=== PATIENT | female | born 1975 | race Caucasian/White ===

== ENCOUNTER 2017-09-26 21:04 | Inpatient (IN) ==
[2017-09-26] MEDS ORDERED: *HR* HYDROcodone/Acet 5/325 mg TABLET PO ONE (21:48)
[2017-09-26 22:27] LABS: Bilirubin,Urine Small (Negative); Blood,Urine Large (Negative); Clarity,Urine Cloudy (Clear); Color,Urine Yellow (Yellow); Glucose,Urine (UA) 500 mg/dL (Normal); Ketones,Urine Trace mg/dL (Negative); Leukocyte Esterase,Urine Trace (Negative); Nitrite,Urine Negative (Negative); PH,Urine 5.5 pH Units (5.0-8.0); Protein,Urine 30 mg/dL (Neg-Trace); Specific Gravity,Urine 1.027 (1.010-1.025); Urobilinogen,Urine Normal (Normal)
[2017-09-26 22:28] LABS: Basophils % 0.1 %; Eosinophils % 0.2 %; Hematocrit 35.8 % (35.3-44.9); Hemoglobin 11.8 g/dL (11.5-15.4); Immature Granulocytes % 1.6 % (0-4); Lymphocytes # 0.1 K/mcL (0.6-4.6); Lymphocytes % 0.6 %; Mean Corpuscular Hemoglobin 28.6 pg (28.0-33.3); Mean Corpuscular Volume 86.7 fL (83.0-100.0); Mean Platelet Volume 11.1 fL (9.4-12.4); Monocytes # 0.6 K/mcL (0.0-1.3); Monocytes % 2.4 %; Neutrophils # 22.3 K/mcL (1.6-8.9); Platelet Count 275 K/mcL (140-400); Red Blood Count 4.13 M/mcL (3.82-4.97); Red Cell Distribution Width 14.5 % (11.5-14.5); Segmented Neutrophils % 95.1 %
[2017-09-26 22:30] LABS: Eosinophils # 0.1 K/mcL (0.0-0.6)
[2017-09-26 22:30] LABS: Bacteria,Urine None Seen per hpf (None-Few); Hyaline Casts,Urine None Seen per lpf (None-Few); Squamous Epithelial Cell,Urine Many per lpf (None-Few)
[2017-09-26 22:38] LABS: BUN/Creatinine Ratio 10 (6-26); Blood Urea Nitrogen 8 mg/dL (6-20); Calcium 9.3 mg/dL (8.6-10.3); Carbon Dioxide 21 mEq/L (23-29); Chloride 102 mEq/L (98-107); Glucose 130 mg/dL (70-105); Magnesium 1.5 mg/dL (1.6-2.6); Osmolality,Calculated 272 (280-300); Phosphorous 1.2 mg/dL (2.7-4.5); Potassium 3.7 mEq/L (3.5-5.1); Sodium 131 mEq/L (136-145); eGFR For African Americans > 60 (> 60); eGFR For Non-African Americans > 60 (> 60)
[2017-09-26 22:47] LABS: INR 1.4; Prothrombin Time 15.5 Seconds (9.4-12.1)
[2017-09-26] MEDS: 0.9 % Sodium Chloride 1,000 ML IVC SCH (22:49)
[2017-09-26 22:50] LABS: Activated Partial Thrombo Time 31.5 Seconds (26.0-36.0)
[2017-09-26 22:50] LABS: RBC,Urine 0-3 per hpf (0-3)
--- NOTE | 2017-09-26 22:53 | Emergency Department Note ---
Disposition Clinical Impression: Dehydration, Tachycardia Cellulitis Qualifiers: Site of cellulitis: extremity Site of cellulitis of extremity: lower extremity Laterality: right Qualified Code(s): L03.115 - Cellulitis of right lower limb Fever Qualifiers: Fever type: unspecified Qualified Code(s): R50.9 - Fever, unspecified Disposition: Still a Patient Condition: Fair Referrals: NONE,PCP [Primary Care Provider] - Jay Mas, [employer] MANAGER [Family Provider] - Forms: ED Satisfaction Letter Time of Disposition: 23:16 General Adult HPI - General Chief complaint: ED Nausea/Vomiting/Diarrhea Stated complaint: NV due to antibiotics given to her at [place] [place] [facility] 09/25 Time Seen by Provider: 09/26/17 21:31 Source: patient, family Mode of arrival: wheelchair Limitations: no limitations Nursing Notes Reviewed: Yes Vital Signs Reviewed: Yes - History of Present Illness HPI Narrative: Patient presents emergency room with complaint of fever or chills generalized malaise and pain in her right leg. She was seen and evaluated off outside facility and given a tetanus shot and oral antibiotics at home. she cut the inside of her foot on the metal. Patient denies any other trauma or injury. Since then she has been feeling much worse. Denies any chest pain shortness of breath headaches vision changes nausea vomiting or diarrhea. She has had fevers and chills with the potential source being her foot. Onset (ago): day(s) Location: right, lower extremity Radiation: non-radiation Pain Scale: 5 Consistency: constant Improves with: nothing Worsens with: movement Associated symptoms: Reports: fever/chills, loss of appetite, malaise Treatments Prior to Arrival: none - Related Data Previous Rx's Medication Instructions Recorded Sulfamethoxazole/Trimeth DS 1 each PO BID #10 tablet 09/25/17 [Bactrim DS] cephALEXin [Keflex] 500 mg PO QID #20 capsule 09/25/17 Allergies Allergy/AdvReac Type Severity Reaction Status Date / Time No Known Allergies Allergy Verified 09/25/17 17:17 All systems ED: reviewed and negative except as stated. Review of Systems: As Per HPI Constitutional: Reports: fever, chills, weakness Eyes: Denies: eye pain ENT ED: Denies: throat pain Cardiovascular: Denies: chest pain, palpitations, dyspnea on exertion, orthopnea Respiratory: Denies: cough, dyspnea, wheezes Gastrointestinal: Denies: abdominal pain, nausea, vomiting, diarrhea Genitourinary: Denies: dysuria, frequency Musculoskeletal: Denies: back pain, neck pain Integumentary: Reports: lesions. Denies: rash, abrasion Psychiatric: Denies: anxiety, depression Past Medical History - Past Medical History Attestation: Yes The following information was validated with the patient. Source: patient Medical history: Reports: no medical history Psychiatric history: Reports: no psych history - Social History Smoking Status: Current every day smoker Smokeless Tobacco Status: No Alcohol use: Reports: none Drug use: Reports: none Physical Exam - General Limitations: no limitations General appearance: alert, in no apparent distress - Head Head exam: atraumatic, normocephalic, normal inspection - ENT ENT exam: normal exam, normal oropharynx, mucous membranes moist - Neck Neck exam: Present: normal inspection, full ROM, trachea midline - Chest Chest inspection: Present: normal inspection, symmetric chest wall rise - Respiratory Respiratory exam: Present: normal lung sounds bilaterally. Absent: respiratory distress, wheezes, accessory muscle use - Cardiovascular Cardiovascular exam: Present: normal rhythm, tachycardia, normal heart sounds - Abdominal Exam Abdominal exam: Present: soft, Non-Tender, normal bowel sounds. Absent: tenderness, distention, guarding, rebound, rigidity, Billings's sign, Rovsing's sign, tenderness at McBurney's Point - Extremities Exam Extremities exam: Present: full ROM, tenderness, normal capillary refill, joint swelling - Back Exam Back exam: Present: normal inspection, full ROM. Absent: tenderness - Neurological Exam Neurological exam: Present: alert, oriented X3, CN II-XII intact - Skin Skin exam: Present: warm, dry, intact, normal color Course Course Narrative: patient seen and examined at the time of arrival. See history of present illness. Patient was recently seen and evaluated for right lower extremity injury and pain. She had lab workup completed for potential infection to her right leg. She was seen at outside facility and had this treatment course completed. The inciting incident was approximately 3 or 4 days ago when she injured her foot all working at home. She is covered by a piece of metal. She was given a tetanus shot and antibiotics for home at that time. Over the last 24 hours she said progression of the swelling irritation redness and warmth to the right lower extremity. She has had generalized malaise fevers and chills. Patient denies chest pain shortness of breath headaches vision changes nausea vomiting or diarrhea. She has had generalized malaise and chills. Patient had a temperature of 103) the emergency room as well as tachycardia to 140. She also was hypotensive. On physical exam the patient is resting in the bed but she does appear to be in mild distress. Her mucous membranes are dry oropharynx is patent. Trachea is midline. Lungs are clear to auscultation bilaterally. Heart is regular but tachycardic. Abdomen is soft nontender nondistended. Lower extremities was evaluated and shows a lesion on the medial aspect of the right foot just below the medial malleolus. There is redness warmth and irritation extending up into the calf. She has no pain with palpation of the calf. Pulses of the DP and PT distributions are intact. She has normal sensation bilaterally and both are symmetrical. Patient is concerning for sepsis based on the abnormal labs and potential infection in the right lower extremity. CBC chemistry lactic acid troponin all within urinalysis chest x-ray and EKG will be collected to rule out any other potential infectious etiology. ESR and CRP will also be collected along with influenza swab. CT imaging of the lower extremity will be completed with IV contrast. Patient will be provided first dose of IV vancomycin as well as fluids 2 L here in the emergency room. Patient will most likely need admission for definitive management. Detailed review of presentation symptoms medical intervention was discussed with the overnight physician Dr. Lucina Gavin. She will complete the course of care and treatment evaluation. A lengthy discussion was had with the family with my recommendations for possible admission once the workup is completed. They agree with this and are comfortable with the plan. Patient is otherwise clinically stable and no acute distress because of concern for infectious etiology require further medical intervention management. Patient understands this is comfortable with the plan. Vital Signs Temperature 103.0 F H 09/26/17 21:22 Pulse Rate 146 09/26/17 21:22 Respiratory Rate 16 09/26/17 21:22 Blood Pressure 96/67 09/26/17 21:22 O2 Sat by Pulse Oximetry 98 09/26/17 21:22 Temperature 103.0 F H 09/26/17 21:22 Pulse Rate 146 09/26/17 21:22 Respiratory Rate 16 09/26/17 21:22 Blood Pressure 96/67 09/26/17 21:22 O2 Sat by Pulse Oximetry 98 09/26/17 21:22 Oxygen Delivery Oxygen Delivery Room Air Medical Decision Making - MDM Narrative Medical decision making narrative: Cellulitis, fever, tachycardia, - Medical Records Medical records reviewed: Yes I reviewed the patient's medical records. - Lab Data Lab results reviewed: Yes I reviewed the patient's lab results. Result diagrams: 09/26/17 22:08 09/26/17 22:08 Lab Results 09/26/17 09/26/17 09/26/17 Range/Units 22:03 22:08 22:08 WBC 23.4 H (4.3-11.1) K/mcL RBC 4.13 (3.82-4.97) M/mcL Hgb 11.8 (11.5-15.4) g/dL Hct 35.8 (35.3-44.9) % MCV 86.7 (83.0-100.0) fL MCH 28.6 (28.0-33.3) pg MCHC 33.0 (31.6-35.5) g/dL RDW 14.5 (11.5-14.5) % Plt Count 275 (140-400) K/mcL MPV 11.1 (9.4-12.4) fL Immature Gran % 1.6 (0-4) % Seg Neutrophils % 95.1 % Lymphocytes % 0.6 % Monocytes % 2.4 % Eosinophils % 0.2 % Basophils % 0.1 % Neutrophils # 22.3 H (1.6-8.9) K/mcL Lymphocytes # 0.1 L (0.6-4.6) K/mcL Monocytes # 0.6 (0.0-1.3) K/mcL Eosinophils # 0.1 (0.0-0.6) K/mcL Basophils # 0.0 (0.0-0.2) K/mcL Platelet Estimate Normal (Normal) PT 15.5 H (9.4-12.1) Seconds INR 1.4 APTT 31.5 (26.0-36.0) Seconds Sodium (136-145) mEq/L Potassium (3.5-5.1) mEq/L Chloride (98-107) mEq/L Carbon Dioxide (23-29) mEq/L BUN (6-20) mg/dL Creatinine (0.60-1.20) mg/dL Est GFR ( Amer) (> 60) Est GFR (Non-Af Amer) (> 60) BUN/Creatinine Ratio (6-26) Glucose (70-105) mg/dL Calculated Osmolality (280-300) Lactic Acid (0.5-2.2) mmol/L Calcium (8.6-10.3) mg/dL Phosphorus (2.7-4.5) mg/dL Magnesium (1.6-2.6) mg/dL Urine Color Yellow (Yellow) Urine Clarity Cloudy A (Clear) Urine pH 5.5 (5.0-8.0) pH Units Ur Specific [place] 1.027 H (1.010-1.025) Urine Protein 30 H (Neg-Trace) mg/dL Urine Glucose (UA) 500 H (Normal) mg/dL Urine Ketones Trace H (Negative) mg/dL Urine Blood Large H (Negative) Urine Nitrite Negative (Negative) Urine Bilirubin Small H (Negative) Urine Urobilinogen Normal (Normal) mg/dL Ur Leukocyte Esterase Trace H (Negative) Urine Microscopic RBC 0-3 (0-3) per hpf Urine Microscopic WBC 5-15 H (0-3) per hpf Ur Squamous Epith Cells Many H (None-Few) per lpf Urine Bacteria None Seen (None-Few) per hpf Hyaline Casts None Seen (None-Few) per lpf Ur Culture Indicated? NO. (NO) 09/26/17 09/26/17 Range/Units 22:08 22:08 WBC (4.3-11.1) K/mcL RBC (3.82-4.97) M/mcL Hgb (11.5-15.4) g/dL Hct (35.3-44.9) % MCV (83.0-100.0) fL MCH (28.0-33.3) pg MCHC (31.6-35.5) g/dL RDW (11.5-14.5) % Plt Count (140-400) K/mcL MPV (9.4-12.4) fL Immature Gran % (0-4) % Seg Neutrophils % % Lymphocytes % % Monocytes % % Eosinophils % % Basophils % % Neutrophils # (1.6-8.9) K/mcL Lymphocytes # (0.6-4.6) K/mcL Monocytes # (0.0-1.3) K/mcL Eosinophils # (0.0-0.6) K/mcL Basophils # (0.0-0.2) K/mcL Platelet Estimate (Normal) PT (9.4-12.1) Seconds INR APTT (26.0-36.0) Seconds Sodium 131 L (136-145) mEq/L Potassium 3.7 (3.5-5.1) mEq/L Chloride 102 (98-107) mEq/L Carbon Dioxide 21 L (23-29) mEq/L BUN 8 (6-20) mg/dL Creatinine 0.82 (0.60-1.20) mg/dL Est GFR ( Amer) > 60 (> 60) Est GFR (Non-Af Amer) > 60 (> 60) BUN/Creatinine Ratio 10 (6-26) Glucose 130 H (70-105) mg/dL Calculated Osmolality 272 L (280-300) Lactic Acid 1.5 (0.5-2.2) mmol/L Calcium 9.3 (8.6-10.3) mg/dL Phosphorus 1.2 L (2.7-4.5) mg/dL Magnesium 1.5 L (1.6-2.6) mg/dL Urine Color (Yellow) Urine Clarity (Clear) Urine pH (5.0-8.0) pH Units Ur Specific [place] (1.010-1.025) Urine Protein (Neg-Trace) mg/dL Urine Glucose (UA) (Normal) mg/dL Urine Ketones (Negative) mg/dL Urine Blood (Negative) Urine Nitrite (Negative) Urine Bilirubin (Negative) Urine Urobilinogen (Normal) mg/dL Ur Leukocyte Esterase (Negative) Urine Microscopic RBC (0-3) per hpf Urine Microscopic WBC (0-3) per hpf Ur Squamous Epith Cells (None-Few) per lpf Urine Bacteria (None-Few) per hpf Hyaline Casts (None-Few) per lpf Ur Culture Indicated? (NO) - Radiology Data Radiology results reviewed: Yes I reviewed the patient's radiology results. Chest x-ray stable for acute etiology. - EKG Data EKG #1 EKG attestation: Yes I reviewed and interpreted this EKG. EKG results narrative: EKG shows sinus rhythm. Ventricular rate of 137. OH interval of 138. QRS duration of 73. QTC of 410. [place] is normal. No acute signs of ST segment elevation or abnormality. No acute signs of WPW or Brugada syndrome. No previous EKG for evaluation. EKG shows normal: sinus rhythm
[2017-09-26 23:00] LABS: Platelet Estimate Normal (Normal)
[2017-09-26] MEDS ORDERED: 0.9 % Sodium Chloride 1,000 ML IVC ONE (23:10)
[2017-09-26] MEDS ORDERED: Piperacillin/Tazobactam 3.375 GM in 0.9 % Sodium Chloride Mini Bag 100 ML IVPB ONE (23:27)
--- NOTE | 2017-09-26 23:28 | Emergency Department Note ---
START Narrative - START START: accepted sign out from Dr. Castillo. Plan is to followup on the CT of her right leg for cellulitis. Emmanuel is likely to be admitted to medicine for cellutiis and sepsis. Continued IVF and will add zosyn to her therapy. 0059: WE will admit ot [facility]. CT result shows cellulitis. We will I/D at bedside. 11 blade with about 2cc of cloudly fluid discharge with immeadaite relief, no bleeding, irrigated extensively. accepted by Dr. Eubanks
[2017-09-26 23:43] LABS: C-Reactive Protein 158 mg/L (Less than 10)
[2017-09-27] MEDS: 0.9 % Sodium Chloride 1,000 ML IVC SCH (00:22)
[2017-09-27] MEDS ORDERED: 0.9 % Sodium Chloride 1,000 ML IVC ONE (01:17)
--- NOTE | 2017-09-27 01:17 | Emergency Department Note ---
Disposition Clinical Impression: Dehydration, Tachycardia Cellulitis Qualifiers: Site of cellulitis: extremity Site of cellulitis of extremity: lower extremity Laterality: right Qualified Code(s): L03.115 - Cellulitis of right lower limb Fever Qualifiers: Fever type: unspecified Qualified Code(s): R50.9 - Fever, unspecified Disposition: Admitted As Inpatient Condition: Fair Referrals: NONE,PCP [Primary Care Provider] - Jay Mas, FINANCE INSURANCE MANAGER [Family Provider] - Forms: ED Satisfaction Letter Time of Disposition: 01:17 General Adult HPI - General Chief complaint: ED Nausea/Vomiting/Diarrhea Stated complaint: NV due to antibiotics given to her at [facility] 09/25 Time Seen by Provider: 09/26/17 21:31 Source: patient, family Mode of arrival: wheelchair Limitations: no limitations - History of Present Illness Location: right, lower extremity Pain Scale: 1 Improves with: nothing Worsens with: movement Associated symptoms: Reports: fever/chills, loss of appetite, malaise Treatments Prior to Arrival: none - Related Data Previous Rx's Medication Instructions Recorded Sulfamethoxazole/Trimeth DS 1 each PO BID #10 tablet 09/25/17 [Bactrim DS] cephALEXin [Keflex] 500 mg PO QID #20 capsule 09/25/17 Allergies Allergy/AdvReac Type Severity Reaction Status Date / Time No Known Allergies Allergy Verified 09/25/17 17:17 Constitutional: Reports: fever, chills, weakness Eyes: Denies: eye pain ENT ED: Denies: throat pain Cardiovascular: Denies: chest pain, palpitations, dyspnea on exertion, orthopnea Respiratory: Denies: cough, dyspnea, wheezes Gastrointestinal: Denies: abdominal pain, nausea, vomiting, diarrhea Genitourinary: Denies: dysuria, frequency Musculoskeletal: Denies: back pain, neck pain Integumentary: Reports: lesions. Denies: rash, abrasion Psychiatric: Denies: anxiety, depression Past Medical History - Past Medical History Medical history: Reports: no medical history Psychiatric history: Reports: no psych history - Social History Smoking Status: Current every day smoker Smokeless Tobacco Status: No Alcohol use: Reports: none Drug use: Reports: none Physical Exam - General Limitations: no limitations General appearance: alert, in no apparent distress Course Vital Signs Temperature 103.0 F H 09/26/17 21:22 Pulse Rate 146 09/26/17 21:22 Respiratory Rate 16 09/26/17 21:22 Blood Pressure 96/67 09/26/17 21:22 O2 Sat by Pulse Oximetry 98 09/26/17 21:22 Temperature 103.0 F H 09/26/17 21:22 Pulse Rate 112 09/27/17 00:24 Respiratory Rate 22 09/27/17 00:24 Blood Pressure 96/52 09/27/17 00:24 O2 Sat by Pulse Oximetry 95 09/27/17 00:24 Oxygen Delivery Oxygen Delivery Room Air Medical Decision Making - Lab Data Result diagrams: 09/26/17 22:08 09/26/17 22:08 Lab Results 09/26/17 09/26/17 09/26/17 Range/Units 22:01 22:03 22:03 WBC (4.3-11.1) K/mcL RBC (3.82-4.97) M/mcL Hgb (11.5-15.4) g/dL Hct (35.3-44.9) % MCV (83.0-100.0) fL MCH (28.0-33.3) pg MCHC (31.6-35.5) g/dL RDW (11.5-14.5) % Plt Count (140-400) K/mcL MPV (9.4-12.4) fL Immature Gran % (0-4) % Seg Neutrophils % % Lymphocytes % % Monocytes % % Eosinophils % % Basophils % % Neutrophils # (1.6-8.9) K/mcL Lymphocytes # (0.6-4.6) K/mcL Monocytes # (0.0-1.3) K/mcL Eosinophils # (0.0-0.6) K/mcL Basophils # (0.0-0.2) K/mcL Platelet Estimate (Normal) ESR 59 H (0-15) mm/hr PT (9.4-12.1) Seconds INR APTT (26.0-36.0) Seconds Sodium (136-145) mEq/L Potassium (3.5-5.1) mEq/L Chloride (98-107) mEq/L Carbon Dioxide (23-29) mEq/L BUN (6-20) mg/dL Creatinine (0.60-1.20) mg/dL Est GFR ( Amer) (> 60) Est GFR (Non-Af Amer) (> 60) BUN/Creatinine Ratio (6-26) Glucose (70-105) mg/dL Calculated Osmolality (280-300) Lactic Acid (0.5-2.2) mmol/L Calcium (8.6-10.3) mg/dL Phosphorus (2.7-4.5) mg/dL Magnesium (1.6-2.6) mg/dL C-Reactive Protein (Less than 10) mg/L Urine Color Yellow (Yellow) Urine Clarity Cloudy A (Clear) Urine pH 5.5 (5.0-8.0) pH Units Ur Specific [place] 1.027 H (1.010-1.025) Urine Protein 30 H (Neg-Trace) mg/dL Urine Glucose (UA) 500 H (Normal) mg/dL Urine Ketones Trace H (Negative) mg/dL Urine Blood Large H (Negative) Urine Nitrite Negative (Negative) Urine Bilirubin Small H (Negative) Urine Urobilinogen Normal (Normal) mg/dL Ur Leukocyte Esterase Trace H (Negative) Urine Microscopic RBC 0-3 (0-3) per hpf Urine Microscopic WBC 5-15 H (0-3) per hpf Ur Squamous Epith Cells Many H (None-Few) per lpf Urine Bacteria None Seen (None-Few) per hpf Hyaline Casts None Seen (None-Few) per lpf Ur Culture Indicated? NO. (NO) Urine Test Negative (Negative) 09/26/17 09/26/17 09/26/17 Range/Units 22:08 22:08 22:08 WBC 23.4 H (4.3-11.1) K/mcL RBC 4.13 (3.82-4.97) M/mcL Hgb 11.8 (11.5-15.4) g/dL Hct 35.8 (35.3-44.9) % MCV 86.7 (83.0-100.0) fL MCH 28.6 (28.0-33.3) pg MCHC 33.0 (31.6-35.5) g/dL RDW 14.5 (11.5-14.5) % Plt Count 275 (140-400) K/mcL MPV 11.1 (9.4-12.4) fL Immature Gran % 1.6 (0-4) % Seg Neutrophils % 95.1 % Lymphocytes % 0.6 % Monocytes % 2.4 % Eosinophils % 0.2 % Basophils % 0.1 % Neutrophils # 22.3 H (1.6-8.9) K/mcL Lymphocytes # 0.1 L (0.6-4.6) K/mcL Monocytes # 0.6 (0.0-1.3) K/mcL Eosinophils # 0.1 (0.0-0.6) K/mcL Basophils # 0.0 (0.0-0.2) K/mcL Platelet Estimate Normal (Normal) ESR (0-15) mm/hr PT 15.5 H (9.4-12.1) Seconds INR 1.4 APTT 31.5 (26.0-36.0) Seconds Sodium 131 L (136-145) mEq/L Potassium 3.7 (3.5-5.1) mEq/L Chloride 102 (98-107) mEq/L Carbon Dioxide 21 L (23-29) mEq/L BUN 8 (6-20) mg/dL Creatinine 0.82 (0.60-1.20) mg/dL Est GFR ( Amer) > 60 (> 60) Est GFR (Non-Af Amer) > 60 (> 60) BUN/Creatinine Ratio 10 (6-26) Glucose 130 H (70-105) mg/dL Calculated Osmolality 272 L (280-300) Lactic Acid (0.5-2.2) mmol/L Calcium 9.3 (8.6-10.3) mg/dL Phosphorus 1.2 L (2.7-4.5) mg/dL Magnesium 1.5 L (1.6-2.6) mg/dL C-Reactive Protein 158 H (Less than 10) mg/L Urine Color (Yellow) Urine Clarity (Clear) Urine pH (5.0-8.0) pH Units Ur Specific [place] (1.010-1.025) Urine Protein (Neg-Trace) mg/dL Urine Glucose (UA) (Normal) mg/dL Urine Ketones (Negative) mg/dL Urine Blood (Negative) Urine Nitrite (Negative) Urine Bilirubin (Negative) Urine Urobilinogen (Normal) mg/dL Ur Leukocyte Esterase (Negative) Urine Microscopic RBC (0-3) per hpf Urine Microscopic WBC (0-3) per hpf Ur Squamous Epith Cells (None-Few) per lpf Urine Bacteria (None-Few) per hpf Hyaline Casts (None-Few) per lpf Ur Culture Indicated? (NO) Urine Test (Negative) 09/26/17 Range/Units 22:08 WBC (4.3-11.1) K/mcL RBC (3.82-4.97) M/mcL Hgb (11.5-15.4) g/dL Hct (35.3-44.9) % MCV (83.0-100.0) fL MCH (28.0-33.3) pg MCHC (31.6-35.5) g/dL RDW (11.5-14.5) % Plt Count (140-400) K/mcL MPV (9.4-12.4) fL Immature Gran % (0-4) % Seg Neutrophils % % Lymphocytes % % Monocytes % % Eosinophils % % Basophils % % Neutrophils # (1.6-8.9) K/mcL Lymphocytes # (0.6-4.6) K/mcL Monocytes # (0.0-1.3) K/mcL Eosinophils # (0.0-0.6) K/mcL Basophils # (0.0-0.2) K/mcL Platelet Estimate (Normal) ESR (0-15) mm/hr PT (9.4-12.1) Seconds INR APTT (26.0-36.0) Seconds Sodium (136-145) mEq/L Potassium (3.5-5.1) mEq/L Chloride (98-107) mEq/L Carbon Dioxide (23-29) mEq/L BUN (6-20) mg/dL Creatinine (0.60-1.20) mg/dL Est GFR ( Amer) (> 60) Est GFR (Non-Af Amer) (> 60) BUN/Creatinine Ratio (6-26) Glucose (70-105) mg/dL Calculated Osmolality (280-300) Lactic Acid 1.5 (0.5-2.2) mmol/L Calcium (8.6-10.3) mg/dL Phosphorus (2.7-4.5) mg/dL Magnesium (1.6-2.6) mg/dL C-Reactive Protein (Less than 10) mg/L Urine Color (Yellow) Urine Clarity (Clear) Urine pH (5.0-8.0) pH Units Ur Specific [place] (1.010-1.025) Urine Protein (Neg-Trace) mg/dL Urine Glucose (UA) (Normal) mg/dL Urine Ketones (Negative) mg/dL Urine Blood (Negative) Urine Nitrite (Negative) Urine Bilirubin (Negative) Urine Urobilinogen (Normal) mg/dL Ur Leukocyte Esterase (Negative) Urine Microscopic RBC (0-3) per hpf Urine Microscopic WBC (0-3) per hpf Ur Squamous Epith Cells (None-Few) per lpf Urine Bacteria (None-Few) per hpf Hyaline Casts (None-Few) per lpf Ur Culture Indicated? (NO) Urine Test (Negative)
[2017-09-27] MEDS ORDERED: traMADol 50 MG TABLET PO PRN (04:18)
[2017-09-27] MEDS ORDERED: Naloxone 0.4 MG/ML INJ IVP PRN (04:18)
[2017-09-27] MEDS ORDERED: Acetaminophen 325 MG TABLET PO PRN (04:18)
--- NOTE | 2017-09-27 04:39 | Internal Med History&Physical ---
Date of Encounter: 09/27/17 Time of Encounter: 03:50 Assessment and Plan (1) Severe sepsis Current visit: Yes Status: Acute 1. Yarely is finishing her Saline bolus from ER per sepsis protocol. 2. Continue MIV thereafter. 3. Will trend lactate levels. 4. Blood and wound cultures obtained. 5. Will treat with Vancomycin and Cefepime. 6. Source is abscess and cellulitis from right medial ankle. 7. Monitor hemodynamics closely. May need pressors and/or steroids for BP unresponsive to IVF. (2) Abscess of skin or subcutaneous tissue Current visit: No Status: Acute 1. ESR is 59 and not indicative of ostemyelitis. Will trend ESR and CRP. If ESR climbing, I would then recommend MRI of foot/ankle to rule out osteomyelitis. 2. Consult Podiatry for possible need for further I&D/debridement. 3. Contact precautions for possible MRSA. 4. Follow blood and wound cultures from ER. 5. S/P I&D in ER. Qualifiers: Site of cutaneous abscess: extremity Site of cutaneous abscess of extremity : lower extremity Laterality: right Qualified Code(s): L02.415 - Cutaneous abscess of right lower limb (3) DVT prophylaxis Current visit: Yes Status: Acute 1. Heparin SQ. Internal Medicine - H&P: HPI Chief complaint: foot abscess Admitted From: Emergency Dept Plans for Post Hospital Care: Home History of present illness: Ms. Alvarado is a 42 year old female who comes into the ER tonight with complaints of fever, chills, malaise, night sweats, and worsening pain and swelling in her right foot/ankle. She was found to have evidence of an abscess along her right ankle. She also is septic from her infection. She received IV fluid bolus for stabilization and antibiotics were initiated once blood cultures were obtained. She then underwent incision and drainage of her abscess in the ER with significant relief of her pain. I was then contacted by ER to admit patient. I requested the ER send a wound culture as well. Upon my assessment of the patient, she states she feels much better, but she is still tachycardic and borderline hypotensive. Her and 2 sons are present and confirm the above history and that she appears better clinically. She states that roughly 2 weeks ago, she cut her foot on a bed rail at home on her bed and she was getting out of bed to go to the bathroom. It was a small skin break down and scrape that appeared to be clean. Several days later she developed some redness, swelling, warmth, and tenderness. This continued and worsened to the point where she had significant pain and subjective fevers. She went to the ER in [place] and was placed on antibiotics for presumptive MRSA skin infection. Despite taking Bactrim and Keflex, her symptoms worsened to the point she became so weak she could not stand today. She was reluctant to come to the ER here at [place], but her family made her come to the ER. She denies any exposure to any known MRSA contacts. She is not diabetic. She takes no chronic medications and has no chronic illnesses. Past Med Surg Social Fam HX - Past Medical History Attestation: Yes The following information was validated with the patient. Source: patient, obtained from family, other (ER notes) Medical history: no medical history Psychiatric history: no psych history - Past Surgical History Surgical History: other (tubal ligation) - Social History Smoking Status: Current every day smoker Packs per day: 0.5 Smokeless Tobacco Status: No Alcohol use: none Drug use: none Occupational status: employed Current living situation: Home, With Family Activity Level: Independent ambulation, Very active Recent Out of Country Travel Within the Last 8 Weeks: No - Family History Father Living Status: Still Living Hx Family Neuromuscular Disorders: Yes (parkinson) Mother Living Status: Still Living Hx Family Neurologic Disorders: Yes (dementia) Internal Medicine - H&P: Meds Sulfamethoxazole/Trimeth DS [Bactrim DS] 1 each PO BID #10 tablet 09/25/17 [Rx] cephALEXin [Keflex] 500 mg PO QID #20 capsule 09/25/17 [Rx] 3 Allergy/AdvReac Type Severity Reaction Status Date / Time No Known Allergies Allergy Verified 09/25/17 17:17 - Constitutional Constitutional: chills, fever(s), malaise, night sweats, weakness - EENT Eyes: no blurry vision, no change in vision Ears: no ear pain, no tinnitus Nose, mouth and throat: no nasal congestion, no nasal discharge, no sinus pressure, no sore throat - Cardiovascular Cardiovascular ROS IM: lightheadedness, palpitations, no chest pain, no dyspnea , no dyspnea on exertion, no paroxysmal nocturnal dyspnea, no syncope - Respiratory Respiratory: no cough, no dyspnea, no hemoptysis, no chest congestion, no excessive phlegm production, no change in phlegm color - Gastrointestinal Gastrointestinal: no abdominal pain, no diarrhea, no heartburn, no hematemesis, no hematochezia, no nausea, no vomiting - Genitourinary Genitourinary: no dysuria, no flank pain, no hematuria - Musculoskeletal Musculoskeletal ROS IM: arthralgias (right foot/ankle), no back pain - Integumentary Integumentary IM: erythema (right medial ankle area), no rash, no jaundice - Neurological Neurological ROS: no focal weakness, no frequent falls, no headache(s) - Psychiatric Psychiatric: no anxiety, no depression - Endocrine Endocrine IM: no polydipsia, no polyuria - Hematologic/Lymphatic Hematologic/Lymphatic: no easy bruising, no lymphadenopathy - Allergic/Immunologic Allergic/Immunologic: no wheezing, no GI upset with certain foods - Constitutional Vitals: Temp Pulse Resp BP Pulse Ox 97.9 F 106 12 95/59 99 09/27/17 04:12 09/27/17 04:12 09/27/17 04:12 09/27/17 04:12 09/27/17 04:12 General appearance: Present: cooperative, mild distress, A&O X 3, pleasant, answers questions appropriately - Head Head exam: Present: atraumatic, normal inspection - Eye Eye exam: Present: EOMI, normal appearance, PERRL. Absent: scleral icterus Pupils: Present: normal accommodation - ENT ENT exam: Present: mucous membranes dry, normal exam, normal oropharynx - Neck Neck exam general surgery: Present: full ROM, supple. Absent: lymphadenopathy, tenderness, nuchal rigidity, thyromegaly - Respiratory Respiratory exam: Present: CTAB. Absent: chest wall tenderness, rales, respiratory distress, rhonchi, wheezes - Cardiovascular Cardiovascular exam: Present: +S1, +S2, tachycardia. Absent: diastolic murmur, systolic murmur - GI/Abdominal GI/Abdominal exam: Present: normal bowel sounds, soft. Absent: guarding, hepatomegaly, mass, splenomegaly, tenderness - Extremities Exam Extremities exam: Present: full ROM, joint swelling (right annkle with medial abscess and surrounding cellulitis ), normal capillary refill, warm, radial pulses palpable and symmetrical. Absent: calf tenderness, pedal edema - Back Exam Back exam: Absent: CVA tenderness (L), CVA tenderness (R) - Neurological Exam Neurological exam: Present: alert, CN II-XII intact, oriented X3, no focal deficits - Psychiatric Psychiatric exam: Present: normal affect, normal mood - Skin Skin exam: Present: dry, erythema (abscess and cellulitis right medial ankle area s/p I&D), warm. Absent: rash Internal Med - H&P Results - Labs CBC & Chem 7: 09/26/17 22:08 09/26/17 22:08 - EKG Data -: EKG Interpreted by Myself EKG shows normal: sinus rhythm - EKG Data Prior EKG available for review: no EKG comments: 09/27/17 04:44 sinus tachycardia - Diagnostic Studies Chest x-ray Status: image reviewed by me (negative) Other Images Status: image reviewed by me (CT right leg/foot -- abscess noted)
[2017-09-27] MEDS: 0.9 % Sodium Chloride w KCl 20 MEQ/1,000 ML MLS IVC SCH ×2 (04:53→12:04)
[2017-09-27] MEDS ORDERED: Vancomycin (wt based) 1,000 MG VIAL IVPB SCH (05:00)
[2017-09-27] MEDS: *HR* Heparin 5,000 UNIT/ML VIAL SQ SCH ×2 (05:30→17:52)
[2017-09-27] MEDS: Cefepime HCl 2,000 MG in Water for inj. (sterile) 20 ML IVP SCH ×2 (05:47→17:57)
[2017-09-27] MEDS ORDERED: Cefepime HCl 2,000 MG in Water for inj. (sterile) 20 ML IVP SCH (06:00)
--- NOTE | 2017-09-27 07:32 | Electrocardiograph Report ---
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
--- NOTE | 2017-09-27 12:52 | Podiatry Consult Note ---
Date of Encounter: 09/27/17 Time of Encounter: 12:00 Assessment and Plan (1) Abscess of skin or subcutaneous tissue Current visit: No Status: Acute Abscess to medial right ankle s/p bedside I&D Wound appears superficial to inspection- cellulitis has been marked for monitoring and has not extended past marked margins Patient reports pain has decreased since bedside I&D A cotton tipped applicator was used to explore the wound and there were no noted sinus tracts or tunneling- There continues to be mild surrounding edema and erythema consistent with cellulitis. There is no noted fluctuance on palpation, no ascending cellulitis. No odor. Per ct there is no evidence of osteomyelitis however given elevated WBC 23.3, tachycardia, mild hypotension, tmax 103, ESR 59 and CRP 158 at this time we will recommend to the patient a formal surgical I&D and washout of wound with tomorrow. states he will go to bedside this evening to speak with patient about plan and decision Discussed with patient while at bedside Continue current antibiotic coverage, await culture results Due to drainage will order Maxsorb AG to be applied daily with 4x4 and kerlix Chest X-Ray 09/26/17 21:46 IMPRESSION: No acute abnormality. D/ / Klaus Sorensen MD / Klaus Sorensen MD Interpreting Provider: Klaus Sorensen MD Lower Extremity CT 09/26/17 21:47 IMPRESSION: Possible 1.5 cm fluid collection within the superficial subcutaneous tissues medially. Adjacent subcutaneous edema is compatible with cellulitis. No findings to suggest osteomyelitis. If there is persisting clinical concern, MRI is more sensitive. Small amount in the flexor hallucis longus tendon sheath, suggestive of tenosynovitis. D/ / 09/27/2017 07:34:24 Neo Stoddard MD / [email or web address] Interpreting Provider: Neo Stoddard MD Qualifiers: Site of cutaneous abscess: extremity Site of cutaneous abscess of extremity : lower extremity Laterality: right Qualified Code(s): L02.415 - Cutaneous abscess of right lower limb History of Present Illness HPI: Ms. Alvarado is a 42 year old female who presented to [facility] for abscess of the right ankle as well as sepsis. Per patient, she reports she struck on ankle on a bed rail about 1 week ago, states that it was sore but only had a small laceration to the ankle. Patient states that on Tuesday she went to work and when she came home the entire ankle was swollen, hot, warm and painful. States she went to [place] ED and was told to put FUAD on it and warm compression. States she came to the [place] ED yesterday as the wound to her ankle looked worse, she started to have fevers and chills and she did not feel good. Patient reports they cut the wound in the ED and the pain was much better. Patient was admitted and started on vancomycin and cefepime, wound and blood cultures have been obtained. There is a dry dressing to wound at this time. Patient denies any medical or surgical history. Patient states she smokes about 1/2 pack a day. Past Med Surg Social Fam HX - Past Medical History Medical history: no medical history Psychiatric history: no psych history - Past Surgical History Surgical History: other (tubal ligation) - Social History Smoking Status: Current every day smoker Packs per day: 0.5 Smokeless Tobacco Status: No Alcohol use: none Drug use: none - Family History Father Living Status: Still Living Hx Family Neuromuscular Disorders: Yes (parkinson) Mother Living Status: Still Living Hx Family Neurologic Disorders: Yes (dementia) Medications and Allergies No Known Home Drugs 09/27/17 [History] 3 Allergy/AdvReac Type Severity Reaction Status Date / Time No Known Allergies Allergy Verified 09/27/17 09:40 All Systems Reviewed: The remainder of the systems were reviewed and are negative Physical Exam - Constitutional Vitals: Temp Pulse Resp BP Pulse Ox 98.2 F 102 16 105/63 96 09/27/17 12:26 09/27/17 12:26 09/27/17 12:26 09/27/17 12:26 09/27/17 12:26 Exam: Awake, alert and oriented Pulses palpable DP/PT bilaterally Cap refill <3 seconds Sensation intact with light touch to foot Muscle strength 5/5 and equal bilaterally Wound is noted to medial right ankle. There is a 2.3cmx2.3cm area of deviatalized/macerated tissue noted which has been lanced due to abscess Wound is surrounded circumferential by a small ring of induration. There is mild erythema surrounding wound and edema to ankle. There is no ascending cellulitis. Upon exploring wound there is no noted sinus tracts or tunneling. There is a small to moderate amount of expressed clear serous drainage to wound. No odor. No purulent drainage noted at this time. Mild warmth. Slight pain with manipulation of wound. No bone exposure. There is no noted fluctuance to palpation. Results - Labs Result Diagrams: 09/26/17 22:08 09/26/17 22:08 Labs: Abnormal lab results WBC 23.4 K/mcL (4.3-11.1) H 09/26/17 22:08 Neutrophils # 22.3 K/mcL (1.6-8.9) H 09/26/17 22:08 Lymphocytes # 0.1 K/mcL (0.6-4.6) L 09/26/17 22:08 ESR 59 mm/hr (0-15) H 09/26/17 22:01 PT 15.5 Seconds (9.4-12.1) H 09/26/17 22:08 Sodium 131 mEq/L (136-145) L 09/26/17 22:08 Carbon Dioxide 21 mEq/L (23-29) L 09/26/17 22:08 Glucose 130 mg/dL (70-105) H 09/26/17 22:08 Calculated Osmolality 272 (280-300) L 09/26/17 22:08 Phosphorus 1.2 mg/dL (2.7-4.5) L 09/26/17 22:08 Magnesium 1.5 mg/dL (1.6-2.6) L 09/26/17 22:08 C-Reactive Protein 158 mg/L (Less than 10) H 09/26/17 22:08 Urine Clarity Cloudy (Clear) A 09/26/17 22:03 Ur Specific [place] 1.027 (1.010-1.025) H 09/26/17 22:03 Urine Protein 30 mg/dL (Neg-Trace) H 09/26/17 22:03 Urine Glucose (UA) 500 mg/dL (Normal) H 09/26/17 22:03 Urine Ketones Trace mg/dL (Negative) H 09/26/17 22:03 Urine Blood Large (Negative) H 09/26/17 22:03 Urine Bilirubin Small (Negative) H 09/26/17 22:03 Ur Leukocyte Esterase Trace (Negative) H 09/26/17 22:03 Urine Microscopic WBC 5-15 per hpf (0-3) H 09/26/17 22:03 Ur Squamous Epith Cells Many per lpf (None-Few) H 09/26/17 22:03 All other labs normal. Consult Discharge Plan - Plan Referrals: NONE,PCP [Primary Care Provider] - Jay Mas, PRODUCTION QUALITY ANALYST [Family Provider] -
--- NOTE | 2017-09-27 18:23 | Event Note ---
Date of Encounter: 09/27/17 Time of Encounter: 11:00 Patient seen by a nocturnalist earlier this morning and also by myself We will continue IV antibiotics for sepsis secondary to right foot abscess; status post I&D and awaiting cultures
--- NOTE | 2017-09-27 19:08 | Podiatry Progress Note ---
Date of Encounter: 09/27/17 Time of Encounter: 06:45 - Assessment and Plan (1) Abscess of skin or subcutaneous tissue Current Visit: No Status: Acute abscess-I&D in ER, subjectively improving. would monitor labs as planned. continue IV antibiotics and if does not continue to improve further work up. will follow. Qualifiers: Site of cutaneous abscess: extremity Site of cutaneous abscess of extremity : lower extremity Laterality: right Qualified Code(s): L02.415 - Cutaneous abscess of right lower limb Subjective Interval history: patient states she feels better than when she came in. says the CT scan was done in the ER, then the I&D bedside. She says she does not feel like she is having a fever anymore and the pain has decreased. She says the redness of the ankle has also decreased. Objective - Vital Signs Vital Signs: Vital Signs Temp Pulse Resp BP Pulse Ox 09/27/17 14:10 98.9 F 97 16 93/53 97 09/27/17 12:26 98.2 F 102 16 105/63 96 09/27/17 10:15 98.4 F 104 14 99/58 96 09/27/17 08:27 100.3 F H 113 16 100/61 97 09/27/17 06:44 98.7 F 118 14 93/56 96 Intake and Output 09/27/17 09/27/17 09/27/17 07:59 15:59 23:59 Intake Total 20 / 2370 1370 / 1370 720 / 720 Balance 20 / 2370 1370 / 1370 720 / 720 Intake: IV Fluids 20 / 20 1250 / 1250 720 / 720 KCl 20 mEq in 0.9% Sodium 1000 / 1000 700 / 700 Chloride 20 meq In 1,000 ml @ 150 mls/hr IVC .Q6H40M [facility] Rx#: [id number] Maxipime 2,000 MG In Water for 20 / 20 20 / 20 inj. (sterile) 20 ML @ 300 mls/ hr IVP Q12HR [facility] Rx#:[id number] Vancocin 1,000 MG In 0.9 % 250 / 250 Sodium Chloride 250 ML @ 167 mls/hr IVPB Q12H [facility] Rx#: [id number] Oral 120 / 120 Other: Meal Lunch Percent of Meal Consumed 35% # Voids 1 2 # Bowel Movements 0 0 - Lab Result Diagrams: 09/26/17 22:08 09/26/17 22:08 Labs: Abnormal lab results WBC 23.4 K/mcL (4.3-11.1) H 09/26/17 22:08 Neutrophils # 22.3 K/mcL (1.6-8.9) H 09/26/17 22:08 Lymphocytes # 0.1 K/mcL (0.6-4.6) L 09/26/17 22:08 ESR 59 mm/hr (0-15) H 09/26/17 22:01 PT 15.5 Seconds (9.4-12.1) H 09/26/17 22:08 Sodium 131 mEq/L (136-145) L 09/26/17 22:08 Carbon Dioxide 21 mEq/L (23-29) L 09/26/17 22:08 Glucose 130 mg/dL (70-105) H 09/26/17 22:08 Calculated Osmolality 272 (280-300) L 09/26/17 22:08 Phosphorus 1.2 mg/dL (2.7-4.5) L 09/26/17 22:08 Magnesium 1.5 mg/dL (1.6-2.6) L 09/26/17 22:08 C-Reactive Protein 158 mg/L (Less than 10) H 09/26/17 22:08 Urine Clarity Cloudy (Clear) A 09/26/17 22:[address] [place] 1.027 (1.010-1.025) H 09/26/17 22:03 Urine Protein 30 mg/dL (Neg-Trace) H 09/26/17 22:03 Urine Glucose (UA) 500 mg/dL (Normal) H 09/26/17 22:03 Urine Ketones Trace mg/dL (Negative) H 09/26/17 22:03 Urine Blood Large (Negative) H 09/26/17 22:03 Urine Bilirubin Small (Negative) H 09/26/17 22:03 Ur Leukocyte Esterase Trace (Negative) H 09/26/17 22:03 Urine Microscopic WBC 5-15 per hpf (0-3) H 09/26/17 22:03 Ur Squamous Epith Cells Many per lpf (None-Few) H 09/26/17 22:03 Consult Discharge Plan - Plan Referrals: NONE,PCP [Primary Care Provider] - Jay Mas, SALESPERSON SURGICAL APPLIANCES [Family Provider] -
[2017-09-28] MEDS: *HR* Heparin 5,000 UNIT/ML VIAL SQ SCH ×2 (05:23→17:17)
[2017-09-28] MEDS: Cefepime HCl 2,000 MG in Water for inj. (sterile) 20 ML IVP SCH (05:33)
[2017-09-28 05:58] LABS: Basophils % 0.1 %; Eosinophils # 0.4 K/mcL (0.0-0.6); Eosinophils % 3.9 %; Hematocrit 26.1 % (35.3-44.9); Immature Granulocytes % 0.3 % (0-4); Lymphocytes # 0.9 K/mcL (0.6-4.6); Lymphocytes % 10.3 %; Mean Corpuscular HGB Conc 32.6 g/dL (31.6-35.5); Mean Corpuscular Hemoglobin 28.4 pg (28.0-33.3); Mean Corpuscular Volume 87.3 fL (83.0-100.0); Mean Platelet Volume 11.3 fL (9.4-12.4); Monocytes # 0.4 K/mcL (0.0-1.3); Monocytes % 4.7 %; Neutrophils # 7.2 K/mcL (1.6-8.9); Platelet Count 194 K/mcL (140-400); Red Blood Count 2.99 M/mcL (3.82-4.97); Red Cell Distribution Width 15.1 % (11.5-14.5); Segmented Neutrophils % 80.7 %
[2017-09-28 06:02] LABS: Hemoglobin 8.5 g/dL (11.5-15.4)
[2017-09-28 06:05] LABS: INR 1.1; Prothrombin Time 11.6 Seconds (9.4-12.1)
[2017-09-28 06:08] LABS: Activated Partial Thrombo Time 29.4 Seconds (26.0-36.0)
[2017-09-28 06:27] LABS: Alanine Aminotransferase 34 Units/L (7-52); Albumin/Globulin Ratio 1.3 (1.1-2.2); Alkaline Phosphatase 76 Units/L (34-104); Aspartate Amino Transferase 35 Units/L (13-39); BUN/Creatinine Ratio 9 (6-26); Bilirubin,Direct 0.1 mg/dL (0.0-0.2); Bilirubin,Indirect 0.1 mg/dL (0.0-1.2); Bilirubin,Total 0.2 mg/dL (0.3-1.0); Blood Urea Nitrogen 5 mg/dL (6-20); Calcium 8.2 mg/dL (8.6-10.3); Carbon Dioxide 21 mEq/L (23-29); Chloride 114 mEq/L (98-107); Globulin 2.4 g/dL (2.4-3.5); Glucose 105 mg/dL (70-105); Magnesium 1.8 mg/dL (1.6-2.6); Osmolality,Calculated 286 (280-300); Potassium 3.7 mEq/L (3.5-5.1); Sodium 139 mEq/L (136-145); Total Protein 5.4 g/dL (6.4-8.9); eGFR For African Americans > 60 (> 60); eGFR For Non-African Americans > 60 (> 60)
--- NOTE | 2017-09-28 13:03 | Podiatry Progress Note ---
Date of Encounter: 09/28/17 Time of Encounter: 12:00 - Assessment and Plan (1) Abscess of skin or subcutaneous tissue Current Visit: No Status: Acute Abscess to medial right ankle s/p bedside I&D 09/28 There is improvement noted in wbc- 8.9 today Patient vitals have stabilized- temp 98.0 HR 51 Patient states that she feels much better and has minimal pain except with ambulation At this time we will hold off on surgical intervention due to response to medical therapy There continues to be a moderate amount of serous drainage noted, please continue maxsorb AG and dry sterile dressings BID- Will need dressing changes once discharged, will need supplies ordered for home use- patient should be able to perform dressing changes on her own Wound cultures currently possible for SA- await final Continue current antibiotic therapy Continue to monitor VS and lab work Patient will need a follow up appointment in podiatry clinic in 1 week following discharge with or myself 09/27 Wound appears superficial to inspection- cellulitis has been marked for monitoring and has not extended past marked margins Patient reports pain has decreased since bedside I&D A cotton tipped applicator was used to explore the wound and there were no noted sinus tracts or tunneling- There continues to be mild surrounding edema and erythema consistent with cellulitis. There is no noted fluctuance on palpation, no ascending cellulitis. No odor. Per ct there is no evidence of osteomyelitis however given elevated WBC 23.3, tachycardia, mild hypotension, tmax 103, ESR 59 and CRP 158 at this time we will recommend to the patient a formal surgical I&D and washout of wound with tomorrow. states he will go to bedside this evening to speak with patient about plan and decision Discussed with patient while at bedside Continue current antibiotic coverage, await culture results Due to drainage will order Maxsorb AG to be applied daily with 4x4 and kerlix Lower Extremity CT 09/26/17 21:47 IMPRESSION: Possible 1.5 cm fluid collection within the superficial subcutaneous tissues medially. Adjacent subcutaneous edema is compatible with cellulitis. No findings to suggest osteomyelitis. If there is persisting clinical concern, MRI is more sensitive. Small amount in the flexor hallucis longus tendon sheath, suggestive of tenosynovitis. D/ / 09/27/2017 07:34:24 Neo Stoddard MD / [email or web address] Interpreting Provider: Neo Stoddard MD Qualifiers: Site of cutaneous abscess: extremity Site of cutaneous abscess of extremity : lower extremity Laterality: right Qualified Code(s): L02.415 - Cutaneous abscess of right lower limb Subjective Interval history: Follwing patient for abscess to right medial ankle. Patient reports improvement in pain and well being today. States she is feeling much better. Up bathing upon entering room. Dressing intact to right ankle. Objective - Vital Signs Vital Signs: Vital Signs Temp Pulse Resp BP Pulse Ox 09/28/17 10:39 98.0 F 51 16 124/78 98 09/28/17 09:07 93 09/28/17 06:45 98.4 F 91 14 116/75 93 09/28/17 04:53 98.3 F 86 14 118/74 97 09/27/17 19:40 98.6 F 89 14 96/59 97 09/27/17 14:10 98.9 F 97 16 93/53 97 Intake and Output 09/27/17 09/28/17 09/28/17 23:59 07:59 15:59 Intake Total 960 / 960 810 / 810 120 / 120 Output Total 250 / 250 500 / 500 Balance 960 / 960 560 / 560 -380 / -380 Intake: IV Fluids 720 / 720 570 / 570 KCl 20 mEq in 0.9% Sodium 700 / 700 300 / 300 Chloride 20 meq In 1,000 ml @ 150 mls/hr IVC .Q6H40M [facility] Rx#: [id number] Maxipime 2,000 MG In Water for 20 / 20 20 / 20 inj. (sterile) 20 ML @ 300 mls/ hr IVP Q12HR [facility] Rx#:[id number] Vancocin 1,000 MG In 0.9 % 250 / 250 Sodium Chloride 250 ML @ 167 mls/hr IVPB Q12H [facility] Rx#: [id number] Oral 240 / 240 240 / 240 120 / 120 Output: Urine 250 / 250 500 / 500 Other: Meal Breakfast Percent of Meal Consumed 75% # Voids 1 2 # Bowel Movements 0 0 Weight 54.386 kg Patient Weight 09/28/17 23:59 Weight 54.386 kg - Exam Exam: Awake, alert and oriented Pulses palpable DP/PT bilaterally Cap refill <3 seconds Sensation intact with light touch to foot Muscle strength 5/5 and equal bilaterally Wound again is noted to medial right ankle. There is a 2.3cmx2.3cm area of deviatalized/macerated tissue which was removed per last night at bedside exposing underlying ulceration. Cohen fibrous tissue remains to wound bed. There is clear yellow to thick yellow drainage. There was a moderate amount of drainage noted to dressing. No odor. There continues to be a scant amount of circumferential induration around wound. Scant erythema remains. There is no ascending cellulitis. Mild warmth. Slight pain with manipulation of wound. No bone exposure. There is no noted fluctuance to palpation. - Lab Result Diagrams: 09/28/17 04:35 09/28/17 04:35 Labs: Abnormal lab results RBC 2.99 M/mcL (3.82-4.97) L 09/28/17 04:35 Hgb 8.5 g/dL (11.5-15.4) L D 09/28/17 04:35 Hct 26.1 % (35.3-44.9) L 09/28/17 04:35 RDW 15.1 % (11.5-14.5) H 09/28/17 04:35 ESR 35 mm/hr (0-15) H 09/28/17 04:35 Chloride 114 mEq/L (98-107) H 09/28/17 04:35 Carbon Dioxide 21 mEq/L (23-29) L 09/28/17 04:35 BUN 5 mg/dL (6-20) L 09/28/17 04:35 Creatinine 0.53 mg/dL (0.60-1.20) L 09/28/17 04:35 Calcium 8.2 mg/dL (8.6-10.3) L 09/28/17 04:35 Phosphorus 1.2 mg/dL (2.7-4.5) L 09/26/17 22:08 Total Bilirubin 0.2 mg/dL (0.3-1.0) L 09/28/17 04:35 C-Reactive Protein 143 mg/L (Less than 10) H 09/28/17 04:35 Serum Total Protein 5.4 g/dL (6.4-8.9) L 09/28/17 04:35 Albumin 3.0 g/dL (3.5-5.7) L 09/28/17 04:35 Urine Clarity Cloudy (Clear) A 09/26/17 22:03 Ur Specific [place] 1.027 (1.010-1.025) H 09/26/17 22:03 Urine Protein 30 mg/dL (Neg-Trace) H 09/26/17 22:03 Urine Glucose (UA) 500 mg/dL (Normal) H 09/26/17 22:03 Urine Ketones Trace mg/dL (Negative) H 09/26/17 22:03 Urine Blood Large (Negative) H 09/26/17 22:03 Urine Bilirubin Small (Negative) H 09/26/17 22:03 Ur Leukocyte Esterase Trace (Negative) H 09/26/17 22:03 Urine Microscopic WBC 5-15 per hpf (0-3) H 09/26/17 22:03 Ur Squamous Epith Cells Many per lpf (None-Few) H 09/26/17 22:03 Vancomycin Trough 5.8 mcg/mL (10-20) L 09/28/17 10:25 Consult Discharge Plan - Plan Referrals: Jay Mas, ENVIRONMENTAL COMPLIANCE MANAGER [Family Provider] -
[2017-09-28] MEDS: Cefepime HCl 2,000 MG in Water for inj. (sterile) 20 ML 20 ML IVP SCH (17:17)
--- NOTE | 2017-09-28 18:04 | Internal Med Progress Note ---
Date of Encounter: 09/28/17 Time of Encounter: 11:00 - Assessment and plan (1) Abscess of skin or subcutaneous tissue Current Visit: No Status: Acute Assessment and plan: Patient's leukocytosis has improved this morning and has been afebrile on IV antibiotics Podiatry consulted and due to improvement with IV antibiotics recommends no surgical intervention at this time Wound cultures grew staph aureus but awaiting sensitivities Continue IV vancomycin and IV cefepime until sensitivities known Qualifiers: Site of cutaneous abscess: extremity Site of cutaneous abscess of extremity : lower extremity Laterality: right Qualified Code(s): L02.415 - Cutaneous abscess of right lower limb (2) DVT prophylaxis Current Visit: Yes Status: Acute Assessment and plan: Heparin subcutaneous - Subjective Interval history: Patient's leukocytosis has improved this morning and has been afebrile on IV antibiotics Wound cultures grew staph aureus but awaiting sensitivities - Constitutional Vitals: Temp Pulse Resp BP Pulse Ox 98.2 F 81 16 143/88 99 09/28/17 15:36 09/28/17 15:36 09/28/17 15:36 09/28/17 15:36 09/28/17 15:36 General appearance: Present: cooperative, mild distress, A&O X 3, pleasant, answers questions appropriately - Respiratory Respiratory exam: Present: CTAB. Absent: accessory muscle use, rales, rhonchi, wheezes - Cardiovascular Cardiovascular exam: Present: RRR, +S1, +S2. Absent: diastolic murmur, gallop, rubs, systolic murmur Internal Medicine: Result - Labs CBC & Chem 7: 09/28/17 04:35 09/28/17 04:35 Labs: Short CBC 09/28/17 Range/Units 04:35 WBC 8.9 D (4.3-11.1) K/mcL Hgb 8.5 L D (11.5-15.4) g/dL Hct 26.1 L (35.3-44.9) % Plt Count 194 (140-400) K/mcL Neutrophils # 7.2 (1.6-8.9) K/mcL BMP 09/28/17 04:35 Sodium 139 Potassium 3.7 Chloride 114 H Carbon Dioxide 21 L BUN 5 L Creatinine 0.53 L Glucose 105 Calcium 8.2 L Liver Function 09/28/17 Range/Units 04:35 Total Bilirubin 0.2 L (0.3-1.0) mg/dL Direct Bilirubin 0.1 (0.0-0.2) mg/dL AST 35 (13-39) Units/L ALT 34 (7-52) Units/L Alkaline Phosphatase 76 (34-104) Units/L Albumin 3.0 L (3.5-5.7) g/dL - ABG Interpretation ABG results: PT/INR, D-dimer PT 11.6 Seconds (9.4-12.1) 09/28/17 04:35 Consult Discharge Plan - Plan Referrals: Jay Mas, INFORMATION TECHNOLOGY AUDIT MANAGER [Family Provider] -
[2017-09-29] MEDS ORDERED: 0.9 % Sodium Chloride 250 ML ONE (04:30)
[2017-09-29] MEDS: Cefepime HCl 2,000 MG in Water for inj. (sterile) 20 ML 20 ML IVP SCH (04:50)
[2017-09-29] MEDS: *HR* Heparin 5,000 UNIT/ML VIAL SQ SCH (04:51)
[2017-09-29 07:12] VITALS: BP 137/83
[2017-09-29 10:47] LABS: Basophils % 0.2 %; Eosinophils # 0.3 K/mcL (0.0-0.6); Eosinophils % 4.5 %; Hematocrit 30.6 % (35.3-44.9); Immature Granulocytes % 0.3 % (0-4); Lymphocytes # 1.1 K/mcL (0.6-4.6); Lymphocytes % 18.8 %; Mean Corpuscular HGB Conc 32.7 g/dL (31.6-35.5); Mean Corpuscular Hemoglobin 28.2 pg (28.0-33.3); Mean Corpuscular Volume 86.2 fL (83.0-100.0); Mean Platelet Volume 10.8 fL (9.4-12.4); Monocytes # 0.4 K/mcL (0.0-1.3); Monocytes % 6.1 %; Neutrophils # 4.2 K/mcL (1.6-8.9); Platelet Count 279 K/mcL (140-400); Red Blood Count 3.55 M/mcL (3.82-4.97); Red Cell Distribution Width 14.9 % (11.5-14.5); Segmented Neutrophils % 70.1 %
[2017-09-29 11:22] LABS: BUN/Creatinine Ratio 11 (6-26); Blood Urea Nitrogen 5 mg/dL (6-20); Calcium 9.3 mg/dL (8.6-10.3); Carbon Dioxide 25 mEq/L (23-29); Chloride 109 mEq/L (98-107); Glucose 111 mg/dL (70-105); Osmolality,Calculated 288 (280-300); Potassium 3.6 mEq/L (3.5-5.1); Sodium 140 mEq/L (136-145); eGFR For African Americans > 60 (> 60); eGFR For Non-African Americans > 60 (> 60)
--- NOTE | 2017-09-29 12:14 | Discharge Summary ---
- NOTES TO OUTPATIENT PROVIDER Notes to Outpatient Provider: Patient will also need to change Maxsorb AG twice daily. Date of Encounter: 09/29/17 Time of Encounter: 10:00 - Discharge Diagnosis (1) Abscess of skin or subcutaneous tissue Priority: Primary Status: Acute Qualifiers: Site of cutaneous abscess: extremity Site of cutaneous abscess of extremity : lower extremity Laterality: right Qualified Code(s): L02.415 - Cutaneous abscess of right lower limb Hospital course: Patient is a 42-year-old female who is admitted to the ER on 09/27/17 due to worsening right foot/ankle pain and swelling. Patient reported symptoms began approximately 2 weeks ago after cutting her foot on a bed rail at home. Patient reported lesion started out as this small skin tear but several days later developed erythema edema warmth and tenderness. The area continued to worsen so patient decided to go to [place] [facility] and was placed on antibiotics for presumptive MRSA. Despite being on Bactrim and Keflex patients symptoms did not improve so she decided to come to the ER at [facility] for further evaluation. During patients hospital stay podiatry was consulted and patient had an incision and drainage and cultures were taken. Diarrhea improved after treatment on IV antibiotics. Cultures and sensitivities were known and patient was de-escalate to oral antibiotics. Patient will be discharged to complete a 10 day course of oral antibiotics and to follow-up with podiatry as outpatient. Patient will also need to change Maxsorb AG twice daily. - Time Spent with Patient Total time spent providing and/or coordinating discharge services: Less than 30 minutes - Discharge Medications Prescriptions: Sulfamethoxazole/Trimeth DS [Bactrim DS] 1 each PO BID 10 Days #20 tablet Home Medications: Sulfamethoxazole/Trimeth DS [Bactrim DS] 1 each PO BID 10 Days #20 tablet [Rx] Allergies/Adverse Reactions: 3 Allergy/AdvReac Type Severity Reaction Status Date / Time No Known Allergies Allergy Verified 09/27/17 09:40 Date of admission: 09/27/17 04:18 Primary care physician: PCP NONE - Constitutional Vitals: Temp Pulse Resp BP Pulse Ox 98.4 F 76 16 137/83 94 09/29/17 07:07 09/29/17 07:07 09/29/17 07:07 09/29/17 07:07 09/29/17 07:07 General appearance: Present: cooperative, mild distress, A&O X 3, pleasant, no acute distress, answers questions appropriately - Respiratory Respiratory exam: Present: CTAB. Absent: accessory muscle use, rales, rhonchi, wheezes - Cardiovascular Cardiovascular exam: Present: RRR, +S1, +S2. Absent: diastolic murmur, gallop, rubs, systolic murmur - Patient Status Disposition: Home, Self-Care Condition: Fair - Discharge Instructions Instructions: Cellulitis (DC) Follow Up With: Vi Ritchie CNP [Advanced Practice Nurse] - 10/04/17 8:15 am (Please arrive 15- 20 min early to fill out paperwork. You will be seeing the CRACKING MACHINE OPERATOR until [facility] gets accredited with commercial insurance. Thank you) Jay Mas CNP [Family Provider] -
[2017-09-29] MEDS ORDERED: Aminoglycoside Consult 1 EACH MC ONE (14:59)
== END 2017-09-29 15:00 | disposition home or self-care (01) | DRG 581 ==
LOC: 2SOUTHHOLD 21:04 → EMEROO 21:04 → 3ANU 09-27 03:14 → SUATTDRO 09-27 04:18
PROVIDERS: ADMIT Pediatrics; ATTEND Hospitalist